=== PATIENT | female | born 1960 | race Caucasian/White ===

== ENCOUNTER → 2016-07-16 | Outpatient (CLI) | payer BC ==
[~2016-07-16] MED LIST: ALBU18HF INH; BECL8.7A5 INH; BUPR75TA6 PO; CARB200T PO; CARB200T3 PO; ESTR2TAB PO; OMEP40CA6 PO; ONDA4TAB10 PO; OXYC-223 PO
== END | disposition home or self-care (01) ==
LOC: STAR 12:50
PROVIDERS: ATTEND Obstetrics & Gynecology Female Pelvic Medicine and Reconstructive Surgery
DX: Z02.9 Encounter for administrative examinations, unspecified (principal)

== ENCOUNTER 2016-07-21 11:18 | Day surgery (SDC) | payer BC ==
[~2016-07-21] VITALS: Ht 167.6 cm; Wt 85.0 kg
[~2016-07-21 11:18] MED LIST changes: +BUPIVACAINE/PF-EPI 0.25% 1:200K ONE; +CEFAZOLIN 1,000 MG ONE; +DEXAMETHASONE 4 MG/ML, 1ML ONE; +FENTANYL PF 250 MCG/5ML ONE; +KETOROLAC 30 MG/1 ML ONE; +MIDAZOLAM 1 MG/ML, 2ML ONE; +ONDANSETRON 2MG/ML, 2ML ONE; +PROPOFOL 10 MG/ML, 20ML ONE; +ROCURONIUM 10 MG/ML ONE; +SUCCINYLCHOLINE 20 MG/ML, 10ML ONE
[2016-07-21 11:51] VITALS: BP 146/90
[2016-07-21] MEDS ORDERED: LACTATED RINGERS 1,000 ML IV SCH (11:54)
[2016-07-21] MEDS ORDERED: LIDOCAINE 1%, 2ML ONE (11:58)
[2016-07-21] MEDS ORDERED: LIDOCAINE 1%, 2ML SQ PRN (12:00)
[2016-07-21 12:57] LABS: DAU SCREEN DISCLAIMER
[2016-07-21] MEDS ORDERED: SCOPOLAMINE PATCH, 1.5MG PATCH.TD72 TD ONE ×2 (14:41→15:20)
[2016-07-21] MEDS ORDERED: BUPIVACAINE/PF-EPI 0.25% 1:200K INFIL ONE (15:18)
[2016-07-21] MEDS ORDERED: ONDANSETRON 2MG/ML, 2ML IVPush PRN (15:30)
[2016-07-21] MEDS ORDERED: MIDAZOLAM 1 MG/ML, 2ML IV PRN (15:30)
[2016-07-21] MEDS ORDERED: HYDROmorphone 1 MG/ML, 1ML IV PRN (15:30)
[2016-07-21] MEDS ORDERED: MEPERIDINE/PF 25MG/0.5ML IVPush PRN (15:30)
[2016-07-21] MEDS ORDERED: ACETAMINOPHEN 325 MG TABLET PO PRN (15:30)
[2016-07-21] MEDS ORDERED: FENTANYL PF 100 MCG/2ML IV PRN (15:30)
[2016-07-21] MEDS ORDERED: OXYcodone 5 MG/5 ML ORAL.SOL UDC PO PRN (15:30)
[2016-07-21] MEDS ORDERED: PROMETHAZINE 25 MG/ML, 1ML IV PRN (15:30)
[2016-07-21] MEDS ORDERED: METOCLOPRAMIDE 5 MG/ML, 2ML IV PRN (15:30)
[2016-07-21] MEDS ORDERED: hydrALAzine 20 MG/ML, 1ML IV PRN (15:30)
[2016-07-21] MEDS ORDERED: LABETALOL 5MG/ML, 20ML IV PRN (15:30)
[2016-07-21] MEDS ORDERED: OXYcodone 5 MG/5 ML ORAL.SOL UDC ONE (16:09)
[2016-07-21] MEDS ORDERED: MEPERIDINE/PF 25MG/0.5ML ONE ×2 (16:09→16:12)
[2016-07-21] MEDS ORDERED: ONDANSETRON 2MG/ML, 2ML ONE (16:21)
[2016-07-21] MEDS ORDERED: HALOPERIDOL 5 MG/ML ONE (16:21)
== END 2016-07-21 19:10 | disposition home or self-care (01) ==
LOC: OUT 11:18
PROVIDERS: ATTEND Obstetrics & Gynecology Female Pelvic Medicine and Reconstructive Surgery
DX: N81.11 Cystocele, midline (principal); N81.6 Rectocele; N81.5 Vaginal enterocele; Z86.19 Personal history of other infectious and parasitic diseases; J45.909 Unspecified asthma, uncomplicated; Z90.710 Acquired absence of both cervix and uterus; Z90.721 Acquired absence of ovaries, unilateral; Z90.79 Acquired absence of other genital organ(s); E66.9 Obesity, unspecified; Z68.30 Body mass index [BMI] 30.0-30.9, adult; Z79.899 Other long term (current) drug therapy
CPT/HCPCS: 57265; 57282; 80307; J0330; J0690; J1100; J1885; J2175; J2250; J2405; J2704; J3010; J3490; J7120

== ENCOUNTER 2018-04-21 14:55 | Outpatient (CLI) | payer BC ==
[~2018-04-21 14:55] MED LIST changes: -BECL8.7A5 INH; +BECL8.7A7 INH; -BUPIVACAINE/PF-EPI 0.25% 1:200K ONE; -CEFAZOLIN 1,000 MG ONE; -DEXAMETHASONE 4 MG/ML, 1ML ONE; -FENTANYL PF 250 MCG/5ML ONE; -KETOROLAC 30 MG/1 ML ONE; -MIDAZOLAM 1 MG/ML, 2ML ONE; -ONDANSETRON 2MG/ML, 2ML ONE; -OXYC-223 PO; +OXYC-306 PO; -PROPOFOL 10 MG/ML, 20ML ONE; -ROCURONIUM 10 MG/ML ONE; -SUCCINYLCHOLINE 20 MG/ML, 10ML ONE
== END 2018-04-21 23:59 | disposition home or self-care (01) ==
LOC: STAR 14:55
PROVIDERS: ATTEND Obstetrics & Gynecology Female Pelvic Medicine and Reconstructive Surgery
DX: Z02.9 Encounter for administrative examinations, unspecified (principal)

== ENCOUNTER 2018-04-26 08:37 | Day surgery (SDC) | payer BC ==
[~2018-04-26] VITALS: Ht 170.2 cm; Wt 83.8 kg
[~2018-04-26 08:37] MED LIST changes: +BUPIVACAINE/PF 0.25% ONE; +EPINEPHRINE 1 MG/ML, 1ML ONE; +NEOMY/POLYMYXIN B GU IRR. 1 ML ONE
[2018-04-26] MEDS ORDERED: LACTATED RINGERS 1,000 ML IV SCH (09:02)
[2018-04-26 09:34] VITALS: BP 143/95
[2018-04-26] MEDS ORDERED: MIDAZOLAM 1 MG/ML, 2ML ONE (10:59)
[2018-04-26] MEDS ORDERED: FENTANYL PF 100 MCG/2ML ONE ×2 (10:59→12:47)
[2018-04-26] MEDS ORDERED: LABETALOL 5MG/ML, 20ML IV PRN (11:30)
[2018-04-26] MEDS ORDERED: MORPHINE SULFATE 4 MG/ML, 1ML IVPush PRN (11:30)
[2018-04-26] MEDS ORDERED: hydrALAzine 20 MG/ML, 1ML IV PRN (11:30)
[2018-04-26] MEDS ORDERED: LORazepam 2 MG/ML, 1ML IVPush PRN (11:30)
[2018-04-26] MEDS ORDERED: OXYcodone 5 MG/5 ML ORAL.SOL UDC PO PRN (11:30)
[2018-04-26] MEDS ORDERED: ACETAMINOPHEN 325 MG TABLET PO PRN (11:30)
[2018-04-26] MEDS ORDERED: METOCLOPRAMIDE 5 MG/ML, 2ML IV PRN (11:30)
[2018-04-26] MEDS ORDERED: MEPERIDINE/PF 25MG/0.5ML IVPush PRN (11:30)
[2018-04-26] MEDS ORDERED: SCOPOLAMINE PATCH, 1.5MG PATCH.TD72 TD ONE (11:40)
[2018-04-26] MEDS ORDERED: KETOROLAC 30 MG/1 ML ONE (11:50)
[2018-04-26] MEDS ORDERED: PROPOFOL 10 MG/ML, 20ML ONE (11:50)
[2018-04-26] MEDS ORDERED: ONDANSETRON 2MG/ML, 2ML ONE (11:50)
[2018-04-26] MEDS ORDERED: CEFAZOLIN 1,000 MG ONE (11:50)
[2018-04-26] MEDS ORDERED: LIDOCAINE-MPF 2% ,5ML ONE (11:50)
[2018-04-26] MEDS ORDERED: DEXAMETHASONE 4 MG/ML, 1ML ONE (11:50)
[2018-04-26] MEDS ORDERED: BUPIVACAINE/PF 0.25% INFIL ONE (12:24)
[2018-04-26] MEDS ORDERED: EPINEPHRINE 1 MG/ML, 1ML INFIL ONE (12:25)
[2018-04-26] MEDS ORDERED: MEPERIDINE/PF 25MG/ML,1ML ONE (12:47)
[2018-04-26] MEDS ORDERED: OXYcodone 5 MG/5 ML ORAL.SOL UDC ONE (12:47)
[2018-04-26] MEDS: FENTANYL PF 100 MCG/2ML IV PRN ×2 (13:18→13:30)
== END 2018-04-26 15:45 | disposition home or self-care (01) ==
LOC: OUT 08:37
PROVIDERS: ATTEND Obstetrics & Gynecology Female Pelvic Medicine and Reconstructive Surgery
DX: N81.89 Other female genital prolapse (principal); N39.3 Stress incontinence (female) (male); N94.10 Unspecified dyspareunia; K21.9 Gastro-esophageal reflux disease without esophagitis; N32.81 Overactive bladder; J45.909 Unspecified asthma, uncomplicated; Z98.890 Other specified postprocedural states; Z90.710 Acquired absence of both cervix and uterus; Z86.19 Personal history of other infectious and parasitic diseases; Z90.722 Acquired absence of ovaries, bilateral
CPT/HCPCS: 57265; 57282; 57288; C1771; J0171; J0690; J1100; J1885; J2175; J2250; J2405; J2704; J3010; J3490